=== PATIENT | female | born 1965 | race Caucasian/White ===

== ENCOUNTER 2020-09-16 01:59 | Emergency (ER) | payer OTHER ==
[~2020-09-16] VITALS: Ht 157.5 cm; Wt 59.1 kg
[2020-09-16 02:26] LABS: COVID AG,FIA SOURCE NASOPHARYNGEAL
[2020-09-16 03:36] VITALS: BP 126/70
== END 2020-09-16 03:42 | disposition home or self-care (01) ==
LOC: EMS 02:02
DX: M25.571 Pain in right ankle and joints of right foot (principal); Z20.828 Contact with and (suspected) exposure to other viral communicable diseases; Z59.0 Homelessness
CPT/HCPCS: 87426; 73610-TC; Z7502

== ENCOUNTER 2020-09-21 09:20 | Emergency (ER) | payer OTHER ==
[~2020-09-21] VITALS: Ht 165.1 cm; Wt 120.0 kg
[2020-09-21 10:50] VITALS: BP 133/70
== END 2020-09-21 11:17 | disposition home or self-care (01) ==
LOC: EMS 09:22
DX: K59.00 Constipation, unspecified (principal); Z90.49 Acquired absence of other specified parts of digestive tract
CPT/HCPCS: Z7502

== ENCOUNTER 2020-11-20 01:51 | Emergency (ER) | payer OTHER ==
[~2020-11-20] VITALS: Ht 157.5 cm; Wt 52.3 kg
[2020-11-20] MEDS ORDERED: PERMETHRIN 1% 60 ML LOTION TP ONE (02:45)
[2020-11-20 03:25] VITALS: BP 145/80
== END 2020-11-20 03:25 | disposition home or self-care (01) ==
LOC: EMS 01:52
DX: B85.0 Pediculosis due to Pediculus humanus capitis (principal); Z90.49 Acquired absence of other specified parts of digestive tract
CPT/HCPCS: 99283

== ENCOUNTER 2020-12-19 20:57 | Emergency (ER) | payer OTHER | END 2020-12-19 22:35 | disposition left against medical advice (07) | LOC: EMS 20:57 | DX: B85.0 Pediculosis due to Pediculus humanus capitis (principal) ==